=== PATIENT | male | born 1995 | race African-American/Black ===

== ENCOUNTER 2016-08-28 22:45 | Emergency (ER) | payer SELFPAY ==
[~2016-08-28] VITALS: Ht 182.9 cm; Wt 71.0 kg
[2016-08-28 22:47] VITALS: BP 128/73; PULSE 100; RESP 16; TEMP 97.5; O2SAT 100
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
[2016-08-28] MEDS ORDERED: ACETAMINOPHEN 500 MG CPLT PO ONE (23:15)
== END 2016-08-28 23:26 | disposition home or self-care (01) ==
LOC: NEPB 22:45
DX: S00.03XA Contusion of scalp, initial encounter (principal); S39.012A Strain of muscle, fascia and tendon of lower back, initial encounter; Y04.0XXA Assault by unarmed brawl or fight, initial encounter; Y93.9 Activity, unspecified; Y92.219 Unspecified school as the place of occurrence of the external cause
CPT/HCPCS: 99283